=== PATIENT | female | born 1985 | race Caucasian/White ===

== ENCOUNTER 2023-01-23 20:57 | Emergency (ER) | payer MEDICAID ==
[~2023-01-23] VITALS: Ht 167.6 cm; Wt 81.6 kg
[2023-01-23 21:06] VITALS: BP_SYST 125; PULSE 62; RESP 18; TEMP 98; O2SAT 99
[2023-01-23] MEDS ORDERED: ACET-2634 PO ×2 (23:48)
[2023-01-23] MEDS ORDERED: IBUP-1969 PO ×2 (23:48)
[2023-01-24 00:03] LABS: CALCIUM 9.4 mg/dL (8.4-11.0); CREATININE 0.9 mg/dL (0.55-1.30); POTASSIUM 3.5 mmol/L (3.5-5.1)
[2023-01-24 00:04] LABS: BASOPHILS % (AUTO) 0.5 % (0.0-2.0); EOSINOPHILS # (AUTO) 0.2 K/uL (0.0-0.4); EOSINOPHILS % (AUTO) 2.9 % (0.0-4.0); HEMATOCRIT 35.3 % (36-48); HEMOGLOBIN 11.6 g/dL (12.0-16.0); LYMPHOCYTES # (AUTO) 3.5 K/uL (1.0-5.5); LYMPHOCYTES % (AUTO) 47.8 % (20.5-51.5); MEAN CORPUSCULAR HEMOGLOBIN 29 pg (27-31); MEAN CORPUSCULAR HGB CONC 33 % (32-36); MEAN CORPUSCULAR VOLUME 87 fL (79.0-98.0); MONOCYTES # (AUTO) 0.4 K/uL (0.0-1.0); MONOCYTES % (AUTO) 5.3 % (1.7-9.3); NEUTROPHILS # (AUTO) 3.2 K/uL (1.8-7.7); NEUTROPHILS % (AUTO) 43.5 % (40.0-70.0); PLATELET COUNT (AUTO) 383 K/uL (130-430); RED BLOOD CELL COUNT(AUTO) 4.06 MIL/uL (4.2-6.2); RED CELL DISTRIBUTION WIDTH 13.8 % (9.0-15.0); WHITE BLOOD COUNT (AUTO) 7.3 K/uL (4.8-10.8)
[2023-01-24 00:16] LABS: ALBUMIN 3.5 g/dL (3.4-4.8); PHOSPHORUS 4.8 mg/dL (2.7-4.5); THYROID STIMULATING HORMONE 3.27 uIu/mL (0.34-4.82); TOTAL BILIRUBIN 0.1 mg/dL (0.0-1.0); TOTAL PROTEIN, SERUM 7.2 g/dL (6.4-8.3)
[2023-01-24 01:27] VITALS: BP_SYST 120; PULSE 58; RESP 20; TEMP 98; O2SAT 99
== END 2023-01-24 01:15 | disposition home or self-care (01) ==
LOC: SED 20:57
DX: R20.2 Paresthesia of skin (principal); R51.9 Headache, unspecified; Z79.899 Other long term (current) drug therapy
CPT/HCPCS: 36415; 70450-TC; 76376; 80053; 81025; 83735; 84100; 84443; 85025; 99283; 99284